=== PATIENT | male | born 1955 | race Caucasian/White ===

== ENCOUNTER 2022-12-05 16:22 | Outpatient (CLI) | payer OTHER, MEDICARE, SELFPAY | END 2022-12-05 16:23 | disposition home or self-care (01) | PROVIDERS: PCP Family Medicine; Visit Provider Family Medicine | DX: R73.9 Hyperglycemia, unspecified (principal); G62.9 Polyneuropathy, unspecified | CPT/HCPCS: 82607; 84443 ==

== ENCOUNTER 2023-03-06 13:06 | Outpatient (CLI) | payer OTHER, MEDICARE, SELFPAY | END 2023-03-06 13:07 | disposition home or self-care (01) | PROVIDERS: PCP Family Medicine; Visit Provider Family Medicine | DX: Z00.00 Encounter for general adult medical examination without abnormal findings (principal); R73.03 Prediabetes; R73.9 Hyperglycemia, unspecified; C61 Malignant neoplasm of prostate; G62.9 Polyneuropathy, unspecified; R79.89 Other specified abnormal findings of blood chemistry | CPT/HCPCS: 80053; 80061; 84153; 84443 ==

== ENCOUNTER 2023-06-26 09:12 | Outpatient (CLI) | payer OTHER, MEDICARE, SELFPAY ==
--- NOTE | 2023-06-26 09:58 | W.ANESCHARGE ---
Anesthesia Charges Start Date/Time Anesthesia Start Date: 06/26/23 Anesthesia Start Time: 09:47 Stop Date/Time Anesthesia Stop Date: 06/26/23 Anesthesia Stop Time: 10:11
--- NOTE | 2023-06-26 10:14 | W.ANESCHARGE ---
Anesthesia Charges Start Date/Time Anesthesia Start Date: 06/26/23 Anesthesia Start Time: 09:47 Stop Date/Time Anesthesia Stop Date: 06/26/23 Anesthesia Stop Time: 10:11
== END 2023-06-26 09:13 | disposition home or self-care (01) ==
LOC: OP CLINIC 09:13
PROVIDERS: PCP Family Medicine; Visit Provider Internal Medicine
DX: Z12.11 Encounter for screening for malignant neoplasm of colon (principal); K63.5 Polyp of colon; K57.30 Diverticulosis of large intestine without perforation or abscess without bleeding
CPT/HCPCS: 00811; 45380; 88305; J2704

== ENCOUNTER 2024-02-04 12:44 | Outpatient (CLI) | payer MEDICARE, OTHER, SELFPAY ==
[2024-02-04] MEDS: PERFLUTREN LIPID MICROSPHERES 2 ML VIAL IV (13:31)
--- NOTE | 2024-02-04 14:07 | P.STN_ITS ---
Stress Test Note Date Date Seen: 02/04/24 Date of test: 02/04/24 Providers Primary care provider: Alban Coyle Stress test physician: Charley Marquis Stress Test Note Stress test ordered: Stress Echo Indication for test: The chest discomfort/heartburn Stress test medicine: Definity Results discussion: Resting EKG: Sinus rhythm, 67 beats per minute, some artifact. Incomplete right bundle branch block possibly on this EKG, different when compared to EKG from 11/09/2020. Resting blood pressure:156/87 Stress test: Patient is consented on stress test ordered and agrees to proceed. Patient was exercise on the treadmill following standard Dimitry protocol. There was significant artifact during the stress test. Patient requested to stop, started to develop some of the heartburn he has been experiencing and was reaching exercise capacity. He had a maximum heart rate of 119 beats per minute which was 91% of a calculated target of 130. He had a total duration of exercise of 6 minutes 22 seconds achieving 7.7 Mets. At end of exercise, rate pressure product was 19,992. At the end of the recovery, patient did become quite hypertensive at 2 a 3/. He developed substernal heartburn that he notes he has been having over 6 months. Did improve into recovery but was still pre sent at the end of the recovery phase. Patient was moved to the ER for further monitoring and troponins. Patient did have inferior flat to downsloping ST segment depression near the end of recovery. Echo images are pending to couple this for a full formal diagnostic. Impression: Subjectively positive, objectively positive EKG portion of this stress test with inferior EKG changes and patient is symptomatic with heartburn which is believed to be an anginal equivalent. Follow up suggested: Patient is moved to the ED department for further monitoring and lab draw with troponins. He will be seen by the ED department and is in agreement with this. The ED physician Dr. Gary mitchell is given sign-out. Patient is still symptomatic with 2/10 heartburn chest discomfort, was a maximum of about 3/10 during the stress test.
[2024-02-04 14:42] VITALS: BP 189/99; PULSE 76
== END 2024-02-04 12:45 | disposition home or self-care (01) ==
LOC: STRESS 12:45
PROVIDERS: PCP Family Medicine; Visit Provider Family Medicine
DX: R07.9 Chest pain, unspecified (principal)
CPT/HCPCS: 93016; 93325; 93351; Q9957

== ENCOUNTER 2024-02-04 13:55 | Emergency (ER) | payer MEDICARE, SELFPAY ==
[2024-02-04] VITALS (27 sets, daily range): BP systolic 138–159; BP diastolic 77–121; PULSE 64–75; RESP 16–20; O2SAT 95–98; BMI 31.6
--- NOTE | 2024-02-04 14:19 | CRLHL7_ITS ---
For Patients: As a result of the Cures Act, medical imaging exams and procedure reports are released immediately into your electronic medical record. You may view this report before your referring provider. If you have questions, please contact your health care provider. INDICATION: Chest pain. TECHNIQUE: Chest 2 views. COMPARISON: None. FINDINGS: Cardiovascular and mediastinum: Cardiomediastinal silhouette is within normal limits Lungs and pleural spaces: Lungs are clear. No sign of pleural effusion. No pneumothorax. Bones and soft tissues: No significant findings. IMPRESSION: No acute or significant findings. Dictated by Domonique Palma MD @ 02/04/2024 2:58:49 PM (Electronically Signed)
[2024-02-04] MEDS: ASPIRIN 81 MG TAB.CHEW 324 MG PO (14:31)
[2024-02-04 14:37] LABS: Basophils Absolute Auto 0.02 K/uL (0.00-0.30); Basophils Percent Auto 0.4 % (0.0-3.0); Eosinophils Absolute Auto 0.27 K/uL (0.00-0.50); Eosinophils Percent Auto 4.8 % (0.0-7.0); Hematocrit 45.4 % (37.0-53.0); Immature Granulocytes Abs Auto 0.04 K/uL (0.00-0.30); Immature Granulocytes Pct Auto 0.7 %; Lymphocytes Absolute Auto 1.21 K/uL (0.90-2.90); Lymphocytes Percent Auto 21.4 % (20-44); Mean Corpuscular HGB Conc 33 gm/dL (32-36); Mean Corpuscular Hemoglobin 29 pg (26-34); Mean Corpuscular Volume 87 fL (80-100); Monocytes Percent Auto 9.2 % (0.0-11.0); Neutrophils Absolute Auto 3.59 K/uL (1.7-7.0); Neutrophils Percent Auto 63.5 % (42.0-72.0); Platelet Count* 228 K/uL (140-440); RDW Coefficient of Variation % 12.9 % (11.5-15.5); Red Blood Count 5.25 m/uL (4.30-5.90); White Blood Count* 5.65 K/uL (4.50-11.00)
[2024-02-04 14:39] LABS: Troponin, Point-of-Care* 0.01 ng/ml (0.01-0.04)
[2024-02-04 14:40] LABS: Slide Review Reflex No
--- NOTE | 2024-02-04 14:44 | ED.CHESTPAIN ---
HPI - Chest Pain General Chief Complaint: Chest Pain <Yogi Roney Gary - Last Filed: 02/04/24 15:51> Stated Complaint: Chest pain <Yogi Vega DO - Last Filed: 02/04/24 15:51> Time Seen by Provider: 02/04/24 13:59 <Yogi Roney Gary DO - Last Filed: 02/04/24 15:51> Source: patient <Yogi Vega DO - Last Filed: 02/04/24 15:51> Mode of arrival: ambulatory <Yogi Vega DO - Last Filed: 02/04/24 15:51> Limitations: no limitations <Yogi Vega DO - Last Filed: 02/04/24 15:51> History of Present Illness HPI narrative: Patient is a 68-year-old male with a history of hypertension presenting to the emergency department for chest pain. He was getting a stress test done when he started developing chest pain and was becoming more hypertensive. Was just diagnosed with hypertension a few weeks ago and was recently started on blood pressure medicine. States he has been having this chest pain on and off with exertion for the past several months. Initially was 3/10 heartburn sensation that is now a 1/10. No previous heart issues. Has never seen a project controls specialist. Did take ABVD aspirin this morning at 04:30 when he woke up. Denies fevers, chills, weakness, numbness, shortness of breath, headache, lightheadedness, dizziness. <Yogi Vega - Last Filed: 02/04/24 15:51> Related Data Home Medications: Home Medications ?Medication ?Instructions ?Recorded ?Confirmed aspirin 81 mg tablet,delayed 81 mg PO DAILY 12/05/22 01/22/24 release multivitamin (Daily Multi-Vitamin 1 tab PO QDAY 12/05/22 01/22/24 tablet) Previous Rx's ?Medication ?Instructions ?Recorded fluticasone propionate 50 2 spray intranasal QDAY #3 ea 03/06/23 mcg/actuation nasal spray,suspension gabapentin 300 mg capsule 300 mg PO TID #270 caps 03/06/23 losartan 50 mg tablet 50 - 100 mg (1 - 2 x 50 mg) PO 01/22/24 QDAY #60 tabs omeprazole 20 mg capsule,delayed 20 mg PO QDAY #90 caps 01/22/24 release <Yogi Vega DO - Last Filed: 02/04/24 15:51> Allergies/Adverse Reactions: Allergies Allergy/AdvReac Type Severity Reaction Status Date / Time adhesive Allergy Intermediate Rash Verified 01/22/24 11:54 castro hips Allergy Mild Rash Verified 01/22/24 11:54 <Yogi Vega DO - Last Filed: 02/04/24 15:51> Review of Systems Status of ROS Reports: 10 or more systems reviewed and unremarkable except as noted in History and below <Yogi Vega DO - Last Filed: 02/04/24 15:51> [facility] Medical History: Medical History GERD (gastroesophageal reflux disease) ?K21.9 - Gastro-esophageal reflux disease without esophagitis (ICD-10) HTN (hypertension) ?I10 - Essential (primary) hypertension (ICD-10) Allergic rhinitis ?J30.9 - Allergic rhinitis, unspecified (ICD-10) Prostate cancer ?C61 - Malignant neoplasm of prostate (ICD-10) Prediabetes ?R73.03 - Prediabetes (ICD-10) Medicare annual wellness visit, subsequent ?Z00.00 - Encounter for general adult medical examination without abnormal findings (ICD-10) Hyperglycemia ?R73.9 - Hyperglycemia, unspecified (ICD-10) Encounter for routine history and physical examination of adult ?Z00.00 - Encounter for general adult medical examination without abnormal findings (ICD-10) Encounter for initial preventive physical examination covered by Medicare ?Z00.00 - Encounter for general adult medical examination without abnormal findings (ICD-10) <Yogi Vega DO - Last Filed: 02/04/24 15:51> Surgical History: Surgical History History of colonoscopy ?Z98.890 - Other specified postprocedural states (ICD-10) <Yogi Vega DO - Last Filed: 02/04/24 15:51> Social History: Social History Smoking Status: Never smoker Do you use any of these nicotine containing products: None Second hand tobacco smoke exposure: No How often do you have a drink containing alcohol: monthly or less How many standard drinks containing alcohol do you have on a typical day: 1 or 2 How often do you have six or more drinks on one occasion: Never AUDIT-C Alcohol total score: 1 Non-prescribed substance use: denies use Little interest or pleasure in doing things: not at all Feeling down, depressed, or hopeless: not at all service: No <Yogi Vega DO - Last Filed: 02/04/24 15:51> Exam Narrative Exam Narrative: Const: Well-nourished, Well-developed, in mild distress Eyes: PERRL, no conjunctival injection, and symmetrical lids HENT: Atraumatic external nose and ears. Moist mucous membranes. Neck: Symmetric, trachea midline, No thyromegaly. CVS: RRR, No murmurs or gallops. Peripheral pulses 2+ and equal in all extremities RESP: Unlabored respiratory effort. Clear to auscultation bilaterally. GI: Nontender/Nondistended, No rebound or guarding. MSK:Extremities w/o deformity, Normal Active ROM Skin: Warm, Dry. No rashes or lesions. Neuro: Normal Muscle tone, No focal neurological deficits. Psych: Awake, Alert, & Oriented x3. Appropriate mood and affect. <Yogi Vega DO - Last Filed: 02/04/24 15:51> Const Vital Signs, click to edit/add: Vital Signs - 24 hr 02/04/24 13:59 02/04/24 14:19 02/04/24 14:30 Pulse Rate 71 71 Pulse Rate [Pulse Oximeter] 75 Respiratory Rate 20 Blood Pressure Blood Pressure [Left Upper Arm] 159/94 H Pulse Oximetry 97 96 96 Oxygen Delivery Method Room Air 02/04/24 14:32 02/04/24 14:47 02/04/24 15:00 Pulse Rate 70 70 70 Pulse Rate [Pulse Oximeter] Respiratory Rate Blood Pressure 149/90 H Blood Pressure [Left Upper Arm] Pulse Oximetry 97 97 95 Oxygen Delivery Method 02/04/24 15:01 02/04/24 15:02 02/04/24 15:17 Pulse Rate 69 67 68 Pulse Rate [Pulse Oximeter] Respiratory Rate Blood Pressure 138/86 Blood Pressure [Left Upper Arm] Pulse Oximetry 96 96 97 Oxygen Delivery Method 02/04/24 15:30 02/04/24 15:32 02/04/24 15:33 Pulse Rate 69 70 72 Pulse Rate [Pulse Oximeter] Respiratory Rate Blood Pressure 148/87 H Blood Pressure [Left Upper Arm] Pulse Oximetry 95 95 95 Oxygen Delivery Method 02/04/24 15:45 02/04/24 16:00 02/04/24 16:01 Pulse Rate 69 69 68 Pulse Rate [Pulse Oximeter] Respiratory Rate Blood Pressure 154/86 H Blood Pressure [Left Upper Arm] Pulse Oximetry 97 96 97 Oxygen Delivery Method 02/04/24 16:15 02/04/24 16:30 02/04/24 16:32 Pulse Rate 64 66 66 Pulse Rate [Pulse Oximeter] Respiratory Rate Blood Pressure 159/84 H Blood Pressure [Left Upper Arm] Pulse Oximetry 95 97 98 Oxygen Delivery Method 02/04/24 16:33 02/04/24 16:45 02/04/24 17:00 Pulse Rate 66 73 68 Pulse Rate [Pulse Oximeter] Respiratory Rate Blood Pressure Blood Pressure [Left Upper Arm] Pulse Oximetry 98 97 98 Oxygen Delivery Method 02/04/24 17:02 02/04/24 17:15 Pulse Rate 67 69 Pulse Rate [Pulse Oximeter] Respiratory Rate 16 Blood Pressure 145/121 H Blood Pressure [Left Upper Arm] Pulse Oximetry 98 97 Oxygen Delivery Method <Yogi Vega, DO - Last Filed: 02/04/24 15:51> Vital Signs - 24 hr 02/04/24 13:59 02/04/24 14:19 02/04/24 14:30 Pulse Rate 71 71 Pulse Rate [Pulse Oximeter] 75 Respiratory Rate 20 Blood Pressure Blood Pressure [Left Upper Arm] 159/94 H Pulse Oximetry 97 96 96 Oxygen Delivery Method Room Air 02/04/24 14:32 02/04/24 14:47 02/04/24 15:00 Pulse Rate 70 70 70 Pulse Rate [Pulse Oximeter] Respiratory Rate Blood Pressure 149/90 H Blood Pressure [Left Upper Arm] Pulse Oximetry 97 97 95 Oxygen Delivery Method 02/04/24 15:01 02/04/24 15:02 02/04/24 15:17 Pulse Rate 69 67 68 Pulse Rate [Pulse Oximeter] Respiratory Rate Blood Pressure 138/86 Blood Pressure [Left Upper Arm] Pulse Oximetry 96 96 97 Oxygen Delivery Method 02/04/24 15:30 02/04/24 15:32 02/04/24 15:33 Pulse Rate 69 70 72 Pulse Rate [Pulse Oximeter] Respiratory Rate Blood Pressure 148/87 H Blood Pressure [Left Upper Arm] Pulse Oximetry 95 95 95 Oxygen Delivery Method 02/04/24 15:45 02/04/24 16:00 02/04/24 16:01 Pulse Rate 69 69 68 Pulse Rate [Pulse Oximeter] Respiratory Rate Blood Pressure 154/86 H Blood Pressure [Left Upper Arm] Pulse Oximetry 97 96 97 Oxygen Delivery Method 02/04/24 16:15 02/04/24 16:30 02/04/24 16:32 Pulse Rate 64 66 66 Pulse Rate [Pulse Oximeter] Respiratory Rate Blood Pressure 159/84 H Blood Pressure [Left Upper Arm] Pulse Oximetry 95 97 98 Oxygen Delivery Method 02/04/24 16:33 02/04/24 16:45 02/04/24 17:00 Pulse Rate 66 73 68 Pulse Rate [Pulse Oximeter] Respiratory Rate Blood Pressure Blood Pressure [Left Upper Arm] Pulse Oximetry 98 97 98 Oxygen Delivery Method 02/04/24 17:02 02/04/24 17:15 Pulse Rate 67 69 Pulse Rate [Pulse Oximeter] Respiratory Rate 16 Blood Pressure 145/121 H Blood Pressure [Left Upper Arm] Pulse Oximetry 98 97 Oxygen Delivery Method <Javier Horn MD - Last Filed: 02/04/24 17:37> Course Reevaluation(s) Time of Reevaluation #1: 16:34 <Javier Horn MD - Last Filed: 02/04/24 17:37> Reevaluation #1: . This patient at the 4:00 p.m., he is pain-free on me my going in the room. He has heparin running. We are going to repeat his troponin, he is on the wait list at [facility] for transfer for cardiology an unstable angina. <Javier Horn MD - Last Filed: 02/04/24 17:37> Time of Reevaluation #2: 17:37 <Javier Horn MD - Last Filed: 02/04/24 17:37> Reevaluation #2: Patient has been accepted at [facility], we will transfer him over there. He remains pain free. On heparin, <Javier Horn MD - Last Filed: 02/04/24 17:37> Vital Signs Vital signs: Initial Vital Signs Temperature Source Temporal Artery Scan 02/04/24 13:59 Pulse Rate 75 02/04/24 13:59 Pulse Rhythm Regular 02/04/24 13:59 Respiratory Rate 20 02/04/24 13:59 Blood Pressure 159/94 H 02/04/24 13:59 Blood Pressure Mean 115 H 02/04/24 13:59 Blood Pressure Position Supine 02/04/24 13:59 Pulse Oximetry 97 02/04/24 13:59 Oxygen Delivery Method Room Air 02/04/24 13:59 Vital Signs Pulse Rate 75 02/04/24 13:59 Respiratory Rate 20 02/04/24 13:59 Blood Pressure 159/94 H 02/04/24 13:59 Pulse Oximetry 97 02/04/24 13:59 Oxygen Delivery Method Room Air 02/04/24 13:59 Pulse Rate 69 02/04/24 17:15 Respiratory Rate 16 02/04/24 17:02 Blood Pressure 145/121 H 02/04/24 17:02 Pulse Oximetry 97 02/04/24 17:15 Oxygen Delivery Method Room Air 02/04/24 13:59 <Yogi Vega DO - Last Filed: 02/04/24 15:51> Initial Vital Signs Temperature Source Temporal Artery Scan 02/04/24 13:59 Pulse Rate 75 02/04/24 13:59 Pulse Rhythm Regular 02/04/24 13:59 Respiratory Rate 20 02/04/24 13:59 Blood Pressure 159/94 H 02/04/24 13:59 Blood Pressure Mean 115 H 02/04/24 13:59 Blood Pressure Position Supine 02/04/24 13:59 Pulse Oximetry 97 02/04/24 13:59 Oxygen Delivery Method Room Air 02/04/24 13:59 Vital Signs Pulse Rate 75 02/04/24 13:59 Respiratory Rate 20 02/04/24 13:59 Blood Pressure 159/94 H 02/04/24 13:59 Pulse Oximetry 97 02/04/24 13:59 Oxygen Delivery Method Room Air 02/04/24 13:59 Pulse Rate 69 02/04/24 17:15 Respiratory Rate 16 02/04/24 17:02 Blood Pressure 145/121 H 02/04/24 17:02 Pulse Oximetry 97 02/04/24 17:15 Oxygen Delivery Method Room Air 02/04/24 13:59 <Javier Horn MD - Last Filed: 02/04/24 17:37> Medications Administered Medications: Generic Name Dose Route Start Last Admin Trade Name Freq PRN Reason Stop Dose Admin Heparin Sodium/Dextrose 25,000 unit in 500 mls @ 0 mls/hr 02/04/24 15:45 02/04/24 16:16 Heparin IV 1,000 unit/hr .Q0M ERICKSON 20 mls/hr Administration Protocol Per Protocol Discontinued Medications Generic Name Dose Route Start Last Admin Trade Name Freq PRN Reason Stop Dose Admin Aspirin 324 mg 02/04/24 14:19 02/04/24 14:31 Aspirin 81 Mg Tab.Chew PO 02/04/24 14:20 324 mg ONCE ONE Administration Heparin Sodium (Porcine) 4,000 unit 02/04/24 15:43 02/04/24 16:14 Heparin 5,000 Unit/0.5 Ml Inj IVP 02/04/24 15:44 4,000 unit ONCE ONE Administration <Yogi Vega DO - Last Filed: 02/04/24 15:51> Generic Name Dose Route Start Last Admin Trade Name Freq PRN Reason Stop Dose Admin Heparin Sodium/Dextrose 25,000 unit in 500 mls @ 0 mls/hr 02/04/24 15:45 02/04/24 16:16 Heparin IV 1,000 unit/hr .Q0M ERICKSON 20 mls/hr Administration Protocol Per Protocol Discontinued Medications Generic Name Dose Route Start Last Admin Trade Name Freq PRN Reason Stop Dose Admin Aspirin 324 mg 02/04/24 14:19 02/04/24 14:31 Aspirin 81 Mg Tab.Chew PO 02/04/24 14:20 324 mg ONCE ONE Administration Heparin Sodium (Porcine) 4,000 unit 02/04/24 15:43 02/04/24 16:14 Heparin 5,000 Unit/0.5 Ml Inj IVP 02/04/24 15:44 4,000 unit ONCE ONE Administration <Javier Horn MD - Last Filed: 02/04/24 17:37> MDM - Chest Pain MDM Narrative Medical decision making narrative: Patient is a 68-year-old male presenting to the emergency department for chest pain. This occurred while he was doing a stress test. This is concerning for angina. Describes as a burning sensation in his chest that has been improving and is now a 1/10 in intensity. Denies shortness of breath. Considering the history I will do a CBC, BMP, magnesium, troponin, EKG. EKG returned showing no concerning abnormalities. Of note his stress test showed some inferior lead abnormalities. His lab work returned showing no concerning abnormalities. Considering his history I am concerned about an though and I spoke to Cardiology. Dr. Hodgson was able to view his stress test and echo and was concerned about some wall motion abnormalities. He states considering difficulty in getting outpatient follow-up at this time with their schedule he thinks it is the best decision for the patient to be transferred as he is very concerning findings and is at high risk. Patient will be transferred to [place] and heparin was started. The patient agreed with this plan. There is currently a wait list for transfer. Will be transferred at earliest availability. Did do a chest x-ray also reviewed by myself and the radiologist showing no concerning abnormalities <Yogi Vega DO - Last Filed: 02/04/24 15:51> Medical Records Data Attestation: I reviewed the patient's medical records. <Javier Horn MD - Last Filed: 02/04/24 17:37> Lab Data Attestation: I reviewed the patient's lab results. <Javier Horn MD - Last Filed: 02/04/24 17:37> Labs: Lab Results 02/04/24 02/04/24 Range/Units 14:17 16:26 WBC 5.65 (4.50-11.00) K/uL RBC 5.25 (4.30-5.90) m/uL Hgb 15.0 (13.5-17.5) gm/dL Hct 45.4 (37.0-53.0) % MCV 87 (80-100) fL MCH 29 (26-34) pg MCHC 33 (32-36) gm/dL RDW Coeff of Josh 12.9 (11.5-15.5) % Plt Count 228 (140-440) K/uL Neut % (Auto) 63.5 (42.0-72.0) % Lymph % (Auto) 21.4 (20-44) % [place] % (Auto) 9.2 (0.0-11.0) % Eos % (Auto) 4.8 (0.0-7.0) % Baso % (Auto) 0.4 (0.0-3.0) % Neut # (Auto) 3.59 (1.7-7.0) K/uL Lymph # (Auto) 1.21 (0.90-2.90) K/uL [place] # (Auto) 0.50 (0.00-0.90) K/UL Eos # (Auto) 0.27 (0.00-0.50) K/uL Baso # (Auto) 0.02 (0.00-0.30) K/uL Abs Immat Gran (auto) 0.04 (0.00-0.30) K/uL Imm/Tot Granulo (auto) 0.7 % INR 0.99 (0.91-1.10) APTT 33 (23-33) Seconds Sodium 138 (135-149) mmol/L Potassium 4.1 (3.6-5.1) mmol/L Chloride 106 (96-114) mmol/L Carbon Dioxide 23 (20-32) mmol/L Anion Gap 9 (7-15) mEq/L BUN 26 (7-30) mg/dL Creatinine 0.9 (0.5-1.5) mg/dL Estimated Creat Clear 74.01 Estimated GFR 94 ml/min Glucose 117 H (60-115) mg/dL Calcium 8.8 (8.4-10.6) mg/dL Magnesium 2.5 (1.5-2.6) mg/dL Troponin I < 0.01 L (0.01-0.04) ng/mL POC Troponin I 0.01 0.02 (0.01-0.04) ng/ml <Yogi Vega, DO - Last Filed: 02/04/24 15:51> Lab Results 02/04/24 02/04/24 Range/Units 14:17 16:26 WBC 5.65 (4.50-11.00) K/uL RBC 5.25 (4.30-5.90) m/uL Hgb 15.0 (13.5-17.5) gm/dL Hct 45.4 (37.0-53.0) % MCV 87 (80-100) fL MCH 29 (26-34) pg MCHC 33 (32-36) gm/dL RDW Coeff of Josh 12.9 (11.5-15.5) % Plt Count 228 (140-440) K/uL Neut % (Auto) 63.5 (42.0-72.0) % Lymph % (Auto) 21.4 (20-44) % [place] % (Auto) 9.2 (0.0-11.0) % Eos % (Auto) 4.8 (0.0-7.0) % Baso % (Auto) 0.4 (0.0-3.0) % Neut # (Auto) 3.59 (1.7-7.0) K/uL Lymph # (Auto) 1.21 (0.90-2.90) K/uL [place] # (Auto) 0.50 (0.00-0.90) K/UL Eos # (Auto) 0.27 (0.00-0.50) K/uL Baso # (Auto) 0.02 (0.00-0.30) K/uL Abs Immat Gran (auto) 0.04 (0.00-0.30) K/uL Imm/Tot Granulo (auto) 0.7 % INR 0.99 (0.91-1.10) APTT 33 (23-33) Seconds Sodium 138 (135-149) mmol/L Potassium 4.1 (3.6-5.1) mmol/L Chloride 106 (96-114) mmol/L Carbon Dioxide 23 (20-32) mmol/L Anion Gap 9 (7-15) mEq/L BUN 26 (7-30) mg/dL Creatinine 0.9 (0.5-1.5) mg/dL Estimated Creat Clear 74.01 Estimated GFR 94 ml/min Glucose 117 H (60-115) mg/dL Calcium 8.8 (8.4-10.6) mg/dL Magnesium 2.5 (1.5-2.6) mg/dL Troponin I < 0.01 L (0.01-0.04) ng/mL POC Troponin I 0.01 0.02 (0.01-0.04) ng/ml <Javier Horn MD - Last Filed: 02/04/24 17:37> Imaging Data Chest x-ray: Attestation: I have reviewed the pertinent imaging results. <Yogi Vega DO - Last Filed: 02/04/24 15:51> Radiologist's impression: No acute or significant findings. Dictated by Domonique Palma MD @ 02/04/2024 2:58:49 PM <Yogi Vega DO - Last Filed: 02/04/24 15:51> ECG Data Attestation: I personally reviewed and interpreted this ECG as follows: <Yogi Vega DO - Last Filed: 02/04/24 15:51> Prior ECG tracings: available for review <Yogi Vega DO - Last Filed: 02/04/24 15:51> Interpretation: Normal sinus rhythm with a rate of 73 beats per minute, normal intervals, normal axis, no ST or T-wave abnormality <Yogi Vega DO - Last Filed: 02/04/24 15:51> Discharge Plan Discharge Clinical Impression: Angina pectoris, unstable <Yogi Vega DO - Last Filed: 02/04/24 15:51> Patient Disposition: [facility] <Yogi Vega DO - Last Filed: 02/04/24 15:51> Condition: Stable <Yogi Vega DO - Last Filed: 02/04/24 15:51> Prescriptions: No Action losartan 50 mg tablet 50 - 100 mg PO QDAY Qty: 60 1RF omeprazole 20 mg capsule,delayed release(DR/EC) 20 mg PO QDAY Qty: 90 0RF aspirin 81 mg tablet,delayed release (DR/EC) 81 mg PO DAILY multivitamin [Daily Multi-Vitamin] Tablet 1 tab PO QDAY gabapentin 300 mg capsule 300 mg PO TID Qty: 270 3RF fluticasone propionate 50 mcg/actuation spray,suspension 2 spray intranasal QDAY Qty: 3 4RF Rx Instructions: administer into each nostril <Yogi Vega DO - Last Filed: 02/04/24 15:51> Stand Alone Forms: MyHealth Info Instructions <Yogi Vega, DO - Last Filed: 02/04/24 15:51>
[2024-02-04 14:49] LABS: Chloride* 106 mmol/L (96-114)
[2024-02-04 14:50] LABS: Potassium* 4.1 mmol/L (3.6-5.1); Sodium* 138 mmol/L (135-149)
[2024-02-04 14:52] LABS: Creatinine* 0.9 mg/dL (0.5-1.5); Est. Creatinine Clearance* 74.01; Estimated Glomerular Filt Rate 94 ml/min; Magnesium* 2.5 mg/dL (1.5-2.6)
[2024-02-04 14:53] LABS: Anion Gap 9 mEq/L (7-15); Blood Urea Nitrogen* 26 mg/dL (7-30); Calcium* 8.8 mg/dL (8.4-10.6); Carbon Dioxide* 23 mmol/L (20-32); Glucose* 117 mg/dL (60-115)
[2024-02-04 15:06] LABS: Troponin I* < 0.01 ng/mL (0.01-0.04)
[2024-02-04] MEDS: HEPARIN 5,000 UNIT/0.5 ML INJ 4000 UNIT IVP (16:14)
[2024-02-04] MEDS: HEPARIN 25,000 UNIT/500 ML BAG 20 UNIT IV (16:16)
[2024-02-04 17:01] LABS: INR 0.99 (0.91-1.10); Prothrombin Time 13.7 Seconds
[2024-02-04 17:02] LABS: Partial Thromboplastin Time* 33 Seconds (23-33)
[2024-02-04 17:09] LABS: Troponin, Point-of-Care* 0.02 ng/ml (0.01-0.04)
== END 2024-02-04 18:11 | disposition short-term general hospital (02) ==
PROVIDERS: Student in an Organized Health Care Education/Training Program; Emergency Provider Family Medicine; PCP Family Medicine
DX: I20.0 Unstable angina (principal)
CPT/HCPCS: 36415; 71046; 80048; 83735; 84484; 85025; 85027; 85610; 85730; 93005; 93016; 93325; 93351; 99284; 99285; A9270; J1644; Q9957

== ENCOUNTER 2024-02-04 18:00 | Outpatient (CLI) | payer MEDICARE, SELFPAY | END 2024-02-04 18:01 | disposition home or self-care (01) | LOC: AMB 02-20 22:23 | PROVIDERS: PCP Family Medicine; Visit Provider Family Medicine | DX: I20.0 Unstable angina (principal) | CPT/HCPCS: A0425; A0427 ==

== ENCOUNTER 2024-04-29 10:51 | Outpatient (CLI) | payer MEDICARE, SELFPAY | END 2024-04-29 10:52 | disposition home or self-care (01) | PROVIDERS: PCP Family Medicine; Visit Provider Family Medicine | DX: Z00.00 Encounter for general adult medical examination without abnormal findings (principal); I10 Essential (primary) hypertension; I25.10 Atherosclerotic heart disease of native coronary artery without angina pectoris; C61 Malignant neoplasm of prostate; R73.9 Hyperglycemia, unspecified; Z12.5 Encounter for screening for malignant neoplasm of prostate | CPT/HCPCS: 80048; G0103 ==

== ENCOUNTER 2024-05-13 08:03 | Outpatient (CLI) | payer MEDICARE, SELFPAY | END 2024-05-13 08:04 | disposition home or self-care (01) | LOC: NFLDREF 05-17 04:11 | PROVIDERS: PCP Family Medicine; Referring Provider Family Medicine; Visit Provider Family Medicine | DX: I25.10 Atherosclerotic heart disease of native coronary artery without angina pectoris (principal); I10 Essential (primary) hypertension | CPT/HCPCS: 80061; 80076 ==

== ENCOUNTER 2024-07-08 08:49 | Outpatient (CLI) | payer MEDICARE, SELFPAY | END 2024-07-08 08:50 | disposition home or self-care (01) | LOC: NFLDREF 07-09 18:14 | PROVIDERS: PCP Family Medicine; Referring Provider Family Medicine; Visit Provider Family Medicine | DX: R31.9 Hematuria, unspecified (principal); R39.9 Unspecified symptoms and signs involving the genitourinary system; N39.0 Urinary tract infection, site not specified | CPT/HCPCS: 87086; 87186 ==

== ENCOUNTER 2024-08-19 08:15 | Outpatient (CLI) | payer MEDICARE, SELFPAY | END 2024-08-19 08:16 | disposition home or self-care (01) | LOC: LKVREF 08:16 | PROVIDERS: PCP Family Medicine; Visit Provider Family Medicine | DX: R73.03 Prediabetes (principal); I25.10 Atherosclerotic heart disease of native coronary artery without angina pectoris; G62.9 Polyneuropathy, unspecified | CPT/HCPCS: 82550 ==

== ENCOUNTER 2025-02-10 10:30 | Outpatient (CLI) | payer MEDICARE, SELFPAY | END 2025-02-10 10:31 | disposition home or self-care (01) | LOC: NFLDREF 02-13 22:10 | PROVIDERS: PCP Family Medicine; Referring Provider Family Medicine; Visit Provider Family Medicine | DX: E11.9 Type 2 diabetes mellitus without complications (principal); I25.10 Atherosclerotic heart disease of native coronary artery without angina pectoris; G62.9 Polyneuropathy, unspecified; R31.9 Hematuria, unspecified | CPT/HCPCS: 82043; 82570 ==

== ENCOUNTER 2025-04-07 08:18 | Outpatient (CLI) | payer MEDICARE, SELFPAY | END 2025-04-07 08:19 | disposition home or self-care (01) | PROVIDERS: PCP Family Medicine; Visit Provider Family Medicine | DX: E11.9 Type 2 diabetes mellitus without complications (principal); I10 Essential (primary) hypertension; C61 Malignant neoplasm of prostate | CPT/HCPCS: 80053; 80061; 84153 ==